=== PATIENT | female | born 1995 | race Caucasian/White ===

== ENCOUNTER 2016-08-12 20:54 | Emergency (ER) | payer OTHER | END 2016-08-12 23:02 | disposition home or self-care (01) | LOC: ED 20:54 | DX: R53.1 Weakness (principal); Z53.21 Procedure and treatment not carried out due to patient leaving prior to being seen by health care provider ==

== ENCOUNTER 2016-08-23 19:19 | Emergency (ER) | payer OTHER ==
[2016-08-23] MEDS ORDERED: IOPAMIDOL 370 (76%) 100 ML VIAL IV ONE (19:20)
[2016-08-23 20:01] LABS: HCG,QUALITATIVE URINE NEGATIVE
[2016-08-23] MEDS ORDERED: SODIUM CHLORIDE 0.9% 1,000 ML ONE (20:25)
[2016-08-23] MEDS ORDERED: HYDROMORPHONE HCL 1 MG/ML SYRINGE ONE (20:25)
[2016-08-23] MEDS ORDERED: ONDANSETRON 4 MG/2ML 2 ML VIAL ONE (20:25)
[2016-08-23 20:27] LABS: SPECIFIC GRAVITY 1.015 (1.001-1.030); URINE BILIRUBIN NEGATIVE (NEGATIVE); URINE BLOOD NEGATIVE (NEGATIVE); URINE GLUCOSE (UA) NEGATIVE (NEGATIVE); URINE LEUKOCYTE ESTERASE NEGATIVE (NEGATIVE); URINE NITRITE NEGATIVE (NEGATIVE); URINE PROTEIN NEGATIVE (NEGATIVE); URINE UROBILINOGEN NORMAL (0-1 mg/dl)
[2016-08-23 20:29] LABS: URINE APPEARANCE CLEAR; URINE COLOR YELLOW
[2016-08-23 20:35] LABS: BASO % 0.6 % (0.2-1.0); EOS # 0.1 (0.0-0.5); EOS % 1.8 % (0.9-2.9); HEMATOCRIT 42.1 % (37.0-47.0); HEMOGLOBIN 14.2 gm/l (12.0-16.0); IMM NEUT% 0.2 % (0-1); LYMPH # 2.4 (1.0-4.8); LYMPH % 48.3 % (15-45); MEAN CELL VOLUME 88.8 fl (81.0-99.0); MEAN CORPUSCULAR HGB CONC 33.7 g/dl (33.0-37.0); MEAN PLATELET VOLUME 10.4 fl (7.4-10.4); MONO # 0.4 (0.0-0.8); MONO % 8.8 % (4-12); NEUT % 40.3 % (43-75); PLATELET COUNT 255 K/mm3 (130-400); RED CELL DISTRIBUTION WIDTH 11.7 % (11.5-14.5)
[2016-08-23 20:47] LABS: ALB/GLOB RATIO 1.4 (>1.0); ALBUMIN 4.1 gm/dL (3.5-5.7); CALCIUM 9.3 mg/dL (8.6-10.3)
--- NOTE | 2016-08-23 20:56 | CT ---
Exam: CT abdomen and pelvis with contrast COMPARISON: 12/17/2014 INDICATION: Periumbilical and right lower quadrant pain. Nausea. TECHNIQUE: CT examination of the abdomen and pelvis was obtained following the administration of 100 mL Isovue-370 intravenous contrast. FINDINGS: Moderate amount of stool is seen within segments of the colon. The appendix is normal. There is no bowel obstruction, free air or free intraperitoneal fluid. Uterus and ovaries are within normal limits Gallbladder is partially contracted in this nonfasting state. The liver, spleen, pancreas and adrenal glands are unremarkable. There is no hydronephrosis. A few scattered renal cysts are noted bilaterally, measuring up to 11 mm on the right. Lung bases are clear. No worrisome osseous abnormality is identified. IMPRESSION: No evidence of appendicitis, or other acute findings identified to explain patient's symptoms. Report was uploaded to the EMR 2051 08/23/2016.
== END 2016-08-23 21:50 | disposition home or self-care (01) ==
LOC: ED 19:19
DX: R10.9 Unspecified abdominal pain (principal); F17.200 Nicotine dependence, unspecified, uncomplicated
CPT/HCPCS: 81025; 85025; 80053; 81003; 74177; 96375; 99284 ×2; 96374; J1170; J2405; J7030; Q9967

== ENCOUNTER 2016-10-20 18:50 | Emergency (ER) | payer OTHER ==
[2016-10-20] MEDS ORDERED: SODIUM CHLORIDE 0.9% 1,000 ML ONE (19:49)
[2016-10-20 19:54] LABS: SPECIFIC GRAVITY 1.025 (1.001-1.030); URINE BILIRUBIN NEGATIVE (NEGATIVE); URINE BLOOD NEGATIVE (NEGATIVE); URINE COLOR YELLOW; URINE GLUCOSE (UA) NEGATIVE (NEGATIVE); URINE LEUKOCYTE ESTERASE 2+ (NEGATIVE); URINE NITRITE NEGATIVE (NEGATIVE); URINE PROTEIN TRACE (NEGATIVE); URINE UROBILINOGEN NORMAL (0-1 mg/dl)
[2016-10-20 19:55] LABS: ABSOLUTE NEUTROPHIL COUNT 4.8 K/mm3 (1.8-7.7); BASO # 0.1 K/mm3 (0.0-0.2); BASO % 0.8 % (0.2-1.0); EOS # 0.1 (0.0-0.5); HEMOGLOBIN 14.8 gm/l (12.0-16.0); IMM NEUT% 0.4 % (0-1); LYMPH # 2.1 (1.0-4.8); LYMPH % 27.2 % (15-45); MEAN CORPUSCULAR HEMOGLOBIN 30.3 pg (27.0-31.0); MEAN CORPUSCULAR HGB CONC 33.6 g/dl (33.0-37.0); MEAN PLATELET VOLUME 10.5 fl (7.4-10.4); MONO # 0.7 (0.0-0.8); MONO % 8.7 % (4-12); NEUT % 61.9 % (43-75); PLATELET COUNT 308 K/mm3 (130-400); RED CELL DISTRIBUTION WIDTH 11.9 % (11.5-14.5); URINE APPEARANCE CLEAR
[2016-10-20 20:01] LABS: ALB/GLOB RATIO 1.5 (>1.0); ALBUMIN 4.5 gm/dL (3.5-5.7); CALCIUM 9.6 mg/dL (8.6-10.3)
[2016-10-20 20:02] LABS: URINE BACTERIA 3+; URINE EPITHELIAL CELLS 0-1 /hpf; URINE RBC 0 /hpf
[2016-10-20] MEDS ORDERED: CEFTRIAXONE 1 GRAM DUPLEX 50 ML IV ONE (20:11)
--- NOTE | 2016-10-21 07:51 | US ---
OB COMP <14 WKS, TRANSVAGINAL ECHOGRAPHY HISTORY: Abdomen pain for 3 days. Early . The patient is expected to be at 4 weeks 4 days gestational age. COMPARISONS: None. FINDINGS: Transabdominal and transvaginal ultrasonography demonstrates a prominent endometrial thickness measuring up to 13 mm in AP diameter. On the transvaginal portion of the examination there is a small fluid collection measuring 3 mm in mean diameter which would be equivalent to a gestational age of 4 weeks 0 days. However, no yolk sac or pole is yet observed. The right ovary measures 3.2 x 1.9 x 2.0 cm. The left ovary measures 4.7 x 2.5 x 3.3 cm. There is a suspected 1.7 cm left ovarian corpus luteal cyst. No masses or free fluid are otherwise visualized. IMPRESSION: 1. A small 3 mm intrauterine fluid collection with no definitive yolk sac or pole. Considerations include early intrauterine or extrauterine gestations or a demise. Recommend serial beta-hCG levels and/or repeat ultrasound. 2. A 1.7 cm probable maternal left ovarian corpus luteal cyst. No pelvic free fluid is visualized. The findings were called to the emergency room at 2249 hours, 10/20/2016, by [facility].
[2016-10-25 09:21] LABS: CHLAMYDIA BD Negative (Negative); N.GONORRHOEAE BD Negative (Negative); SOURCE Urine (())
== END 2016-10-20 23:18 | disposition home or self-care (01) ==
LOC: ED 18:50
DX: O23.41 Unspecified infection of urinary tract in pregnancy, first trimester (principal); O99.331 Smoking (tobacco) complicating pregnancy, first trimester; F17.210 Nicotine dependence, cigarettes, uncomplicated; Z3A.01 Less than 8 weeks gestation of pregnancy
CPT/HCPCS: 87491; 87591; 84702; 84703; 85025; 87086; 80053; 84144; 81001; 76801; 76830; 99284 ×2; 96361; 96365; J7030; J0696